=== PATIENT | female | born 1980 | race Two or more races ===

== ENCOUNTER → 2017-06-06 | Outpatient (CLI) | payer MEDICAID | END | disposition home or self-care (01) | LOC: CFH 07:56 | PROVIDERS: ATTEND Nurse Practitioner | DX: K76.0 Fatty (change of) liver, not elsewhere classified (principal); Z90.49 Acquired absence of other specified parts of digestive tract | CPT/HCPCS: 76700 ==

== ENCOUNTER 2017-08-01 04:20 | Emergency (ER) | payer MEDICAID ==
[~2017-08-01] VITALS: Ht 149.9 cm; Wt 95.8 kg
[2017-08-01] MEDS ORDERED: MAALOX/HYOSCYAMINE/LIDOCAINE 45 ML BTL PO ONE (05:00)
[2017-08-01] MEDS ORDERED: MAALOX/HYOSCYAMINE/LIDOCAINE 45 ML BTL ONE (05:17)
[2017-08-01 06:15] VITALS: BP 116/78
== END 2017-08-01 06:17 | disposition home or self-care (01) ==
LOC: ED 05:23
DX: J20.8 Acute bronchitis due to other specified organisms (principal); E11.9 Type 2 diabetes mellitus without complications; J02.9 Acute pharyngitis, unspecified
CPT/HCPCS: 71020; 99284; J7512